=== PATIENT | female | born 1935 | race Caucasian/White ===

== ENCOUNTER 2016-07-31 10:14 | Inpatient (IN) ==
[2016-07-31] MEDS ORDERED: SODIUM CHLORIDE 0.9% 500 ML IV STA (10:54)
[2016-07-31] MEDS ORDERED: methylPREDNISolone SOD SUC 125 MG/2 ML VIAL IV STA (10:54)
[2016-07-31] MEDS ORDERED: ALBUTEROL 2.5 MG/3 ML NEB RESP TX SCH (11:00)
[2016-07-31] MEDS ORDERED: LEVOFLOXACIN INJ 500 MG in PREMIX 1 EACH IV STA (11:12)
--- NOTE | 2016-07-31 11:21 | Emergency Department Note ---
Earnestine Mccoy Hilary, am scribing for, and in the presence of, Yannick Quintana MD 10:58. Mariano Mccoy Charles R, MD, personally performed the services described in this documentation, ascribed by Annika Colby in my presence, and it is both accurate and complete . Arrival - Arrival Chief Complaint: Upper Respiratory Stated Complaint: "SICK" ED Nursing Triage Note: PT BROUGHT BY EMS FOR FEVER, PRODUCTIVE COUGH, AND RECENT DIAGNOSIS OF PNEUMONIA. PT WAS SEEN HERE ON SATURDAY FOR SAME C/O. Mode of Arrival: Stretcher Limitations: No Limitations Source: Patient, RN Notes Reviewed Time Seen by Provider: 07/31/16 10:45 - History of Present Illness HPI Narrative: Pt is a 80 y/o female brought into the ED via EMS with c/o of not feeling well and feeling nervous. Pt was recently diagnosed with pneumonia per records. She states that she has been getting pain injections in her back and she is feeling confused. She isn't complaining of any injuries or problems just that she isn't feeling good. No other complaints or problems stated in the ED. Onset (ago): unknown Severity: mild Severity scale (1-10): 1 Allergies/Adverse Reactions: Allergies Allergy/AdvReac Type Severity Reaction Status Date / Time azithromycin [From Zithromax] Allergy Mild Unknown/Unable Verified 07/31/16 10: 22 to obtain acetaminophen [From Lortab] Allergy Unknown/Unable Verified 07/31/16 10:22 to obtain cefdinir [From Omnicef] Allergy Unknown/Unable Verified 07/31/16 10:22 to obtain cephalexin Allergy Unknown/Unable Verified 07/31/16 10:22 to obtain Cephalosporins Allergy Unknown/Unable Verified 07/31/16 10:22 to obtain clarithromycin [From Biaxin] Allergy Unknown/Unable Verified 07/31/16 10:22 to obtain Erythromycin Base Allergy Unknown/Unable Verified 07/31/16 10:22 to obtain hydrocodone [From Lortab] Allergy Unknown/Unable Verified 07/31/16 10:22 to obtain nitrofurantoin Allergy Unknown/Unable Verified 07/31/16 10:22 [From Macrobid] to obtain ofloxacin [From Floxin] Allergy Unknown/Unable Verified 07/31/16 10:22 to obtain Penicillins Allergy Unknown/Unable Verified 07/31/16 10:22 to obtain Sulfa (Sulfonamide Allergy Unknown/Unable Verified 07/31/16 10:22 Antibiotics) to obtain Home Medications: Home Medications Medication Instructions Recorded Confirmed Type Atorvastatin Calcium 20 mg PO DAILY 07/27/16 07/31/16 History Celecoxib [Celebrex] 200 mg PO DAILY 07/27/16 07/31/16 History Enalapril Maleate 20 mg PO BID 07/27/16 07/31/16 History Esomeprazole Magnesium [Nexium] 20 mg PO DAILY 07/27/16 07/31/16 History Gabapentin 300 mg PO TID 07/27/16 07/31/16 History Levofloxacin Tab [Levaquin Tab] 750 mg PO DAILY #7 tablet 07/27/16 07/31/16 Rx Levothyroxine Tab [Synthroid Tab] 50 mcg PO DAILY 07/27/16 07/31/16 History Oxybutynin Chloride [Oxybutynin 10 mg PO DAILY 07/27/16 07/31/16 History Chloride ER] Oxycodone HCl/Acetaminophen 1 each PO Q6H PRN 07/27/16 07/31/16 History [Oxycodone-Acetaminophen 10-325] amLODIPine [Norvasc] 5 mg PO DAILY 07/27/16 07/31/16 History sitaGLIPtin [Januvia] 100 mg PO DAILY 07/27/16 07/31/16 History methylPREDNISolone DOSEPAK [Medrol 4 mg PO DAILY 07/31/16 07/31/16 History Dosepak] Review of System - Review of System 12 point system: reviewed and no additional remarkable complaints except as stated - Review of System Constitutional: Absent: fever Respiratory: Present: cough (slight cough) Neurological: Present: confusion Psychiatric: Present: other (Nervousness) Medical,Surgical,& Family Hx - Social History Smoking Status: Smoker, status unknown Frequency of Alcohol Use: None Type of Drug Use: None Exam Vital Signs: Vital Signs Temperature 97.9 F 07/31/16 10:53 Pulse Rate 91 H 07/31/16 10:53 Respiratory Rate 07/31/16 10:53 Blood Pressure 98/59 07/31/16 10:53 O2 Sat by Pulse Oximetry 98 07/31/16 10:53 - General General appearance: alert, in no apparent distress, other (weak and sick appearing) - Head Head exam: Present: atraumatic, normocephalic - Eye Eye exam: Present: normal appearance, PERRL, EOMI - ENT ENT exam: Present: mucous membranes moist, TM's normal bilaterally. Absent: mucous membranes dry - Neck Neck exam: Present: full ROM, trachea midline. Absent: tenderness - Chest Chest inspection: Present: symmetric chest wall rise. Absent: tenderness - Respiratory Respiratory exam: Present: prolonged expiratory phase, wheezes, other (right lung is positive for egophoney). Absent: normal lung sounds bilaterally ( decreased breath sounds) - Cardiovascular Cardiovascular exam: Present: regular rate, normal rhythm, normal heart sounds. Absent: murmur, rubs, gallop - Abdominal Exam Abdominal exam: Present: soft, normal bowel sounds. Absent: distention, tenderness - Extremities Exam Extremities exam: Present: full ROM, other (swan neck of the fingers, arthritic changes in all extremeties). Absent: tenderness - Back Exam Back exam: Present: full ROM. Absent: tenderness - Neurological Exam Neurological exam: Present: alert, oriented X3, CN II-XII intact. Absent: motor sensory deficit - Psychiatric Psychiatric exam: Present: normal affect, normal mood, other (Pleasantly confused) - Skin Skin exam: Present: warm, dry, intact, normal color. Absent: rash Course - Consultations Consultation #1: Hospitalist will admit patient Time: 12:25 Results - Labs CBC & BMP: 07/31/16 10:27 07/31/16 10:27 Lab Results: I have reviewed the patients labs Labs: Laboratory Tests 07/31/16 10:27 WBC 19.1 H RBC 4.25 Hgb 13.5 Hct 39.3 MPV 9.1 L Neut % (Auto) 75.3 H Lymph % (Auto) 13.1 L Neut # (Auto) 14.4 H Stark # (Auto) 1.1 H Laboratory Tests 07/31/16 07/31/16 10:27 10:27 INR 1.0 PT Patient/Control Mix 10.1 Sodium 132 L Potassium 4.5 Chloride 100 Carbon Dioxide 24 BUN 18 Creatinine 0.90 BUN/Creatinine Ratio 20.00 Glucose 119 H Calculated Osmolality 266.5 L Troponin I 0.029 Total Protein 5.5 L Albumin 2.8 L Albumin/Globulin Ratio 1.0 L Laboratory Tests 07/31/16 07/31/16 10:27 10:27 Total Counted 100 Segmented Neutrophils 81 Band Neutrophils 2 Lymphocytes 14 L Monocytes 3 B-Natriuretic Peptide 75 - Diagnostic Findings Procedure: Chest x-ray: report reviewed by me (Chronic interstitial scarring changes with superimposed nonspecific patchy opacities appear similar to slightly improved from prior. No definite new focal consolidation or other active process) Critical Care Time Critical Care Time: Yes Total Critical Care Time: 60 Disposition Clinical Impression: Pneumonia, Sepsis, Generalized weakness, Hypotension, Bronchitis, COPD exacerbation Case discussed with: patient Disposition: Still a Patient Condition: Guarded Time of Disposition: 12:25 Sepsis - Sepsis Classification of Sepsis: Sepsis - Physical Exam Respiratory exam: rhonchi, wheezes Cardiovascular exam: tachycardia Skin exam: normal color
[2016-07-31 11:27] LABS: Basophils # 0.1 10*3/uL (0.0-0.2); Basophils % 0.3 % (0.0-0.8); Eosinophils # 0.2 10*3/uL (0.0-0.87); Eosinophils % 0.8 % (0.00-10.9); Hematocrit 39.3 VOL% (35.7-47.0); Hemoglobin 13.5 GM/DL (12.0-16.0); Immature Granulocytes % 4.7 %; Lymphocytes # 2.5 10*3/uL (1.4-4.0); Lymphocytes % 13.1 % (21.3-54.2); Mean Corpuscular HGB Conc 34.4 GM/DL (32-36); Mean Corpuscular Hemoglobin 32 PG (27-34); Mean Corpuscular Volume 92.5 FL (87-102); Mean Platelet Volume 9.1 FL (9.6-12.0); Monocytes # 1.1 10*3/uL (0.11-0.8); Monocytes % 5.8 % (1.7-12.7); Neutrophils # 14.4 10*3/uL (1.4-7.4); Neutrophils % 75.3 % (38.7-73.9); Platelet Count 287 T/CUMM (130-400); Red Blood Count 4.25 MC/CUMM (3.8-5.5); Red Cell Distribution Width 14.7 % (9.3-17.3); White Blood Count 19.1 T/CUMM (4-12)
[2016-07-31 11:32] LABS: PT Patient Result 10.1 SECS
[2016-07-31 11:41] LABS: Albumin 2.8 G/DL (3.4-5.0); Bilirubin,Total 0.7 MG/DL (0.2-1.0); Calcium 8.6 MG/DL (8.5-10.1); Magnesium 1.9 MG/DL (1.8-2.4); Osmolality,Calculated 266.5 MOS/KG (273-304); Potassium 4.5 MMOL/L (3.5-5.1); Total Protein 5.5 G/DL (6.4-8.3); Troponin I Only 0.029 NG/ML (0.00-0.045)
--- NOTE | 2016-07-31 12:01 | XRay Report ---
Exam: XR chest 1V portable Indication: Shortness of breath Comparison study: Prior chest radiograph 07/27/2016 Findings: The heart, mediastinum and bony structures are stable from prior. Diffuse chronic appearing interstitial scarring changes appear essentially unchanged from prior. There are a few scattered superimposed areas of interstitial/focal airspace opacity which appear similar to slightly decreased from prior may represent underlying atelectasis or focal scarring or resolving infiltrates. No definite new focal consolidation is visualized. There is no pneumothorax or pleural effusion identified. Impression: Chronic interstitial scarring changes with superimposed nonspecific patchy opacities appear similar to slightly improved from prior. No definite new focal consolidation or other active process. PROCEDURE INTERPRETED AT [facility] DEPARTMENT OF RADIOLOGY Final Report Signed by: Neil Thomas
[2016-07-31] MEDS ORDERED: LEVOFLOXACIN INJ 100 ML IV ONE (12:04)
[2016-07-31 12:17] LABS: Band Neutrophils 2 % (0-10); Lymphocytes 14 % (20-55); Platelet Estimate Normal; Segmented Neutrophils 81 % (50-85); Total Cells Counted 100
[2016-07-31] MEDS ORDERED: methylPREDNISolone SOD SUC 125 MG/2 ML VIAL ONE (12:28)
[2016-07-31] MEDS ORDERED: SODIUM CHLORIDE 0.9% 1,000 ML IV STA (14:30)
[2016-07-31] MEDS ORDERED: ONDANSETRON 4 MG/2 ML VIAL IV PRN (14:32)
[2016-07-31] MEDS ORDERED: LACTULOSE 20 GM/30 ML UDCUP PO PRN (14:32)
[2016-07-31] MEDS ORDERED: DOCUSATE SODIUM 100 MG CAPSULE PO PRN (14:32)
[2016-07-31] MEDS ORDERED: ZALEPLON 5 MG CAPSULE PO PRN (14:32)
[2016-07-31] MEDS ORDERED: ACETAMINOPHEN 325 MG TABLET PO PRN (14:47)
--- NOTE | 2016-07-31 14:51 | Hospitalist History & Physical ---
Assessment and Plan (1) Pneumonia Status: Acute Assessment and plan: Chest x-ray shows no definite new focal consolidation or other active process, however there is chronic interstitial scarring changes with superimposed nonspecific patchy opacities. Patient will be continued on Levaquin IV. IV fluid hydration. Blood cultures and urine cultures pending. Current Visit: Yes (2) Hypotension Status: Acute Assessment and plan: BP was 89/52 on admission, it improved to 98/59 with a bolus of fluid. Patient remains hypotensive. We will hold all antihypertensives at this time. Will support with IV fluid resuscitation. Patient will be admitted to ICU for further care. Current Visit: Yes (3) Leukocytosis Status: Acute Assessment and plan: WBC 19.1. This is likely secondary to steroid use. However we will obtain blood cultures and urine cultures to rule out any source of infection. Current Visit: Yes (4) Generalized weakness Status: Acute Current Visit: Yes History of Present Illness Chief complaint: feeling nervous History of present illness: Ms. Bhagat is a 80 year old white female with a past medical history significant for hypertension, hypothyroidism, hyperlipidemia, arthritis who presents to the ED with complaints of not feeling well and feeling nervous. Patient was recently seen in the ER on Saturday and diagnosed with pneumonia per hospital records. She reports to me that she has a history of back pain and recently saw Dr. Gutiérrez and had a steroid injection on . She was then treated with Medrol Dosepak on Saturday in the ER. Patient states that she has been extremely nervous and jittery all weekend and presents back to the ED today with pneumonia, tachycardia, chills, leukocytosis. Patient was a poor historian and complained mostly about being cold and "ready to get a room". She denies headache, blurry vision, chest pain, changes in appetite or bowel habits, edema. Labs on admission reveal WBC 19.1, hemoglobin 13.5, hematocrit 39.3, sodium 132, potassium 4.5, BUN 18, creatinine 0.90, glucose 119. Patient is hypotensive with a blood pressure on admission of 89/52. Case has been discussed with Dr. Quintana, ER physician, and Dr. Bahena, admitting physician, and patient will be admitted to the hospital medicine service for further treatment and evaluation. Patient this is a full code. Home meds have been reviewed and reconciled. We will hold all blood pressure medications at this time. Home Medications Medication Instructions Recorded Confirmed Type Atorvastatin Calcium 20 mg PO DAILY 07/27/16 07/31/16 History Celecoxib [Celebrex] 200 mg PO DAILY 07/27/16 07/31/16 History Enalapril Maleate 20 mg PO BID 07/27/16 07/31/16 History Esomeprazole Magnesium [Nexium] 20 mg PO DAILY 07/27/16 07/31/16 History Gabapentin 300 mg PO TID 07/27/16 07/31/16 History Levofloxacin Tab [Levaquin Tab] 750 mg PO DAILY #7 tablet 07/27/16 07/31/16 Rx Levothyroxine Tab [Synthroid Tab] 50 mcg PO DAILY 07/27/16 07/31/16 History Oxybutynin Chloride [Oxybutynin 10 mg PO DAILY 07/27/16 07/31/16 History Chloride ER] Oxycodone HCl/Acetaminophen 1 each PO Q6H PRN 07/27/16 07/31/16 History [Oxycodone-Acetaminophen 10-325] amLODIPine [Norvasc] 5 mg PO DAILY 07/27/16 07/31/16 History sitaGLIPtin [Januvia] 100 mg PO DAILY 07/27/16 07/31/16 History methylPREDNISolone DOSEPAK [Medrol 4 mg PO DAILY 07/31/16 07/31/16 History Dosepak] Allergies Allergy/AdvReac Type Severity Reaction Status Date / Time azithromycin [From Zithromax] Allergy Mild Unknown/Unable Verified 07/31/16 10: 22 to obtain acetaminophen [From Lortab] Allergy Unknown/Unable Verified 07/31/16 10:22 to obtain cefdinir [From Omnicef] Allergy Unknown/Unable Verified 07/31/16 10:22 to obtain cephalexin Allergy Unknown/Unable Verified 07/31/16 10:22 to obtain Cephalosporins Allergy Unknown/Unable Verified 07/31/16 10:22 to obtain clarithromycin [From Biaxin] Allergy Unknown/Unable Verified 07/31/16 10:22 to obtain Erythromycin Base Allergy Unknown/Unable Verified 07/31/16 10:22 to obtain hydrocodone [From Lortab] Allergy Unknown/Unable Verified 07/31/16 10:22 to obtain nitrofurantoin Allergy Unknown/Unable Verified 07/31/16 10:22 [From Macrobid] to obtain ofloxacin [From Floxin] Allergy Unknown/Unable Verified 07/31/16 10:22 to obtain Penicillins Allergy Unknown/Unable Verified 07/31/16 10:22 to obtain Sulfa (Sulfonamide Allergy Unknown/Unable Verified 07/31/16 10:22 Antibiotics) to obtain Medical,Surgical,& Family Hx - Social History Smoking Status: Smoker, status unknown Frequency of Alcohol Use: None Type of Drug Use: None - Constitutional Constitutional: Present: chills, weakness. Absent: fever(s), headache(s) - EENT Eyes: Absent: blurry vision Ears: Present: decreased hearing Nose, mouth and throat: Absent: dysphagia, hoarseness, vertigo - Cardiovascular Cardiovascular: Present: dyspnea, dyspnea on exertion. Absent: chest pain at rest, chest pain with activity, diaphoresis, edema, radiating jaw, neck or arm pain, palpitations - Respiratory Respiratory: Present: cough, pain on inspiration, change in phlegm color - Gastrointestinal Gastrointestinal: Absent: abdominal pain, constipation, nausea, vomiting - Genitourinary Genitourinary: Absent: dysuria, hematuria - Musculoskeletal Musculoskeletal: Present: arthralgias, back pain - Neurological Neurological: Absent: abnormal gait, abnormal speech, dizziness - Psychiatric Psychiatric: Absent: anxiety, depression - Endocrine Endocrine: Present: cold intolerance, fatigue, heat intolerance - Hematologic/Lymphatic Hematologic/Lymphatic: Present: easy bleeding, easy bruising Exam - Constitutional Vitals: Period Temp Pulse Resp BP Sys/Staley Pulse Ox Last 24 Hr 97.9 F-97.9 F 88-143 18-24 81-109/42-65 87-98 Exam: General appearance: normal weight, no acute distress - Head Head exam: Present: normocephalic, atraumatic - Eye Eye exam: Present: EOMI. Absent: conjunctival injection, nystagmus Pupils: Present: JULIANNA, normal accommodation - ENT ENT exam: Present: normal exam, normal external ear exam - Neck Neck exam: Present: normal inspection. Absent: lymphadenopathy, tenderness, thyromegaly - Respiratory Respiratory exam: Present: rhonchi present in R lung Absent: rales, wheezes - Cardiovascular Cardiovascular exam: Present: regular rate and rhythm. Absent: carotid bruit, gallop, rubs - GI/Abdominal GI/Abdominal exam: Present: normal bowel sounds. Absent: ascites, distended, mass - Extremities Exam Extremities exam: Present: normal inspection, normal capillary refill. Absent: edema - Back Exam Back exam: Absent: CVA tenderness (L), CVA tenderness (R) - Neurological Exam Neurological exam: Present: alert, oriented X3 - Psychiatric Psychiatric exam: Present: normal affect, normal mood - Skin Skin exam: Present: normal color, warm, dry Results - Labs CBC & BMP: 07/31/16 10:27 07/31/16 10:27 Lab Results: I have reviewed the past 24 hour labs - EKG EKG results: interpreted by ERMD - Diagnostic Findings Procedure: Chest x-ray: image reviewed by me, report reviewed by me
[2016-07-31] MEDS ORDERED: oxyCODONE/ACETAMINOPHEN 5-325 MG TABLET PO PRN (17:12)
[2016-07-31] MEDS ORDERED: DEXTROSE 50% 25 GM/50 ML VIAL IV PRN (17:13)
[2016-07-31] MEDS ORDERED: GLUCAGON 1 MG VIAL IM PRN (17:13)
[2016-07-31] MEDS ORDERED: HYDROCORTISONE 100 MG VIAL IV ONE (17:14)
[2016-07-31] MEDS ORDERED: ENOXAPARIN 40 MG/0.4 ML SYRINGE SUBCUT SCH (17:30)
[2016-07-31] MEDS ORDERED: SODIUM CHLORIDE 0.9% 1,650 ML IV ONE (17:34)
--- NOTE | 2016-07-31 17:41 | Event Note ---
Patient is admitted with severe sepsis with leukocytosis, hypotension, tachycardia and shortness of breath. A lactic acid was ordered but not drawn in the emergency department. Sepsis - Sepsis Classification of Sepsis: Severe Sepsis Possible / Suspected infection from: Pneumonia - Physical Exam Physical Exam: Constitutional System: Severe distress. Mild tremulousness. Head: Normocephalic, atraumatic. Ears, Nose and Throat System: No pain or tenderness. No epistaxis or discharge Eyes System: Pupils equal, round, and reactive. Extraocular muscles intact. Neck: Supple, without adenopathy, No jugular venous distention. Respiratory System: Chest rhonchi and wheezing bilaterally to auscultation. Cardiovascular System: Heart with tachycardic rate and rhythm. No murmur. GI System: Abdomen soft, nontender. Normo active bowel sounds present. Musculoskeletal System: limbs with no pedal edema. Full distal pulses. Neurological System: No discernable sensory deficit. No aphasia Psychiatric System: Conversation is rational - Physical Exam Respiratory exam: rhonchi, wheezes Capillary Refill: Less Than 3 Seconds Peripheral pulses: Radial (L): 3+/4+, Radial (R): 3+/4+, Dorsalis Pedis (L) PM: 3+/4+, Dorsalis Pedis (R) PM: 3+/4+, Posterior Tibialis (L): 3+/4+, Posterior Tibialis (R): 3+/4+ Cardiovascular exam: tachycardia Skin exam: normal color
[2016-07-31] MEDS ORDERED: ALPRAZolam 0.5 MG TABLET PO PRN (17:43)
[2016-07-31 18:53] LABS: Apearance,Urine CLEAR (Clear); Bacteria,Urine Occasional /HPF (Few); Bilirubin,Urine Negative (Negative); Blood, Urine Negative (Negative); Glucose,Urine (UA) Negative (Negative); Ketones,Urine 5 mg/dL (Negative); Mucus,Urine Occasional /LPF (Occasional); Nitrite,Urine Negative (Negative); Protein,Urine Negative; RBC,Urine 1 /HPF (0-4); Squamous Epithelial Cell,Urine Occasional /HPF (0-10); Urine Color Yellow (Yellow); Urine Specific Gravity 1.012 (1.001-1.035); Urine Urobilinogen < 2.0 EU/DL (0.2-1.0); WBC,Urine 3 /HPF (0-6)
[2016-07-31] MEDS: SODIUM CHLORIDE 0.9% 1,000 ML IV SCH (18:55)
[2016-07-31] MEDS: INSULIN LISPRO 100 UNIT/ML SUBCUT SCH (20:40)
[2016-08-01] MEDS: SODIUM CHLORIDE 0.9% 1,000 ML IV SCH ×2 (02:31→12:01)
[2016-08-01 02:40] LABS: ABG HCO3 15.5 MMOL/L (20-26); ABG Oxygen Saturation 95.5 % (95-100); ABG PCO2 26.5 MM HG (35-48); ABG PH 7.386 (7.35-7.45); ABG PO2 76.9 MM HG (80-95); ABG TCO2 16.4 MMOL/L (23-27); Allen Test Positive
[2016-08-01 04:19] LABS: Basophils % 0.2 % (0.0-0.8); Hematocrit 33.1 VOL% (35.7-47.0); Hemoglobin 11.3 GM/DL (12.0-16.0); Immature Granulocytes % 4.4 %; Immature Granulocytes Absolute 0.75 #; Lymphocytes % 5.7 % (21.3-54.2); Mean Corpuscular HGB Conc 34.1 GM/DL (32-36); Mean Corpuscular Hemoglobin 32 PG (27-34); Mean Corpuscular Volume 92.2 FL (87-102); Mean Platelet Volume 8.9 FL (9.6-12.0); Monocytes # 0.3 10*3/uL (0.11-0.8); Monocytes % 1.5 % (1.7-12.7); Neutrophils # 14.9 10*3/uL (1.4-7.4); Neutrophils % 88.2 % (38.7-73.9); Platelet Count 227 T/CUMM (130-400); Red Blood Count 3.59 MC/CUMM (3.8-5.5); Red Cell Distribution Width 14.6 % (9.3-17.3); White Blood Count 16.9 T/CUMM (4-12)
[2016-08-01 04:49] LABS: Band Neutrophils 2 % (0-10); Burr Cells 2+; Lymphocytes 7 % (20-55); Platelet Estimate Normal; Segmented Neutrophils 89 % (50-85); Total Cells Counted 100
[2016-08-01 04:57] LABS: Potassium 3.9 MMOL/L (3.5-5.1)
--- NOTE | 2016-08-01 07:13 | Pulmonology Consult Note ---
Assessment and Plan (1) Tobacco abuse Status: Acute Assessment and plan: We will need long discussion is following stopping smoking. She is on home oxygen with COPD already but continues to smoke. Current Visit: Yes (2) Multifocal atrial tachycardia Status: Acute Assessment and plan: Tracings on the monitor indicate multifocal atrial tachycardia. This is often seen with COPD exacerbation. Treat by treating the underlying lung problems. Diltiazem is helpful at times. Current Visit: Yes (3) COPD exacerbation Status: Acute Assessment and plan: Intravenous corticosteroids, nebulized bronchodilators, and antibiotics are ordered. She has multiple antibiotic allergies. I think Levaquin and doxycycline or a reasonable combination. Current Visit: Yes (4) Pneumonia Status: Acute Assessment and plan: Acute bronchopneumonia. Should be covered with current meds. Current Visit: Yes (5) Sepsis Status: Acute Assessment and plan: Blood pressure control with present. Lactic acid was not elevated. Current Visit: Yes History of Present Illness Chief complaint: Cough shortness of breath History of present illness: Ms. Bhagat is a 80 year old female who was admitted yesterday afternoon through the emergency room. She had acute onset of pneumonia type symptoms about 5 days ago and was treated at home. She got worse yesterday and came in was admitted. She was hypotensive and felt to be septic. She is presently on Levaquin and doxycycline. She has multiple antibiotic allergies. She is a smoker up until current time. She was followed in the past by Dr. Yannick Melendez in [place]. She says she moved to [place] 7 years ago but has not established care here. She has hypertension hyperlipidemia and peripheral neuropathy. She has chronic back pain radiating to her leg. She had an injection in her back Saturday by Dr. Gutiérrez. Home Medications Medication Instructions Recorded Confirmed Type Atorvastatin Calcium 20 mg PO DAILY 07/27/16 07/31/16 History Celecoxib [Celebrex] 200 mg PO DAILY 07/27/16 07/31/16 History Enalapril Maleate 20 mg PO BID 07/27/16 07/31/16 History Esomeprazole Magnesium [Nexium] 20 mg PO DAILY 07/27/16 07/31/16 History Gabapentin 300 mg PO TID 07/27/16 07/31/16 History Levofloxacin Tab [Levaquin Tab] 750 mg PO DAILY #7 tablet 07/27/16 07/31/16 Rx Levothyroxine Tab [Synthroid Tab] 50 mcg PO DAILY 07/27/16 07/31/16 History Oxybutynin Chloride [Oxybutynin 10 mg PO DAILY 07/27/16 07/31/16 History Chloride ER] Oxycodone HCl/Acetaminophen 1 each PO Q6H PRN 07/27/16 07/31/16 History [Oxycodone-Acetaminophen 10-325] amLODIPine [Norvasc] 5 mg PO DAILY 07/27/16 07/31/16 History sitaGLIPtin [Januvia] 100 mg PO DAILY 07/27/16 07/31/16 History methylPREDNISolone DOSEPAK [Medrol 4 mg PO DAILY 07/31/16 07/31/16 History Dosepak] Allergies Allergy/AdvReac Type Severity Reaction Status Date / Time azithromycin [From Zithromax] Allergy Mild Unknown/Unable Verified 07/31/16 10: 22 to obtain acetaminophen [From Lortab] Allergy Unknown/Unable Verified 07/31/16 10:22 to obtain cefdinir [From Omnicef] Allergy Unknown/Unable Verified 07/31/16 10:22 to obtain cephalexin Allergy Unknown/Unable Verified 07/31/16 10:22 to obtain Cephalosporins Allergy Unknown/Unable Verified 07/31/16 10:22 to obtain clarithromycin [From Biaxin] Allergy Unknown/Unable Verified 07/31/16 10:22 to obtain Erythromycin Base Allergy Unknown/Unable Verified 07/31/16 10:22 to obtain hydrocodone [From Lortab] Allergy Unknown/Unable Verified 07/31/16 10:22 to obtain nitrofurantoin Allergy Unknown/Unable Verified 07/31/16 10:22 [From Macrobid] to obtain ofloxacin [From Floxin] Allergy Unknown/Unable Verified 07/31/16 10:22 to obtain Penicillins Allergy Unknown/Unable Verified 07/31/16 10:22 to obtain Sulfa (Sulfonamide Allergy Unknown/Unable Verified 07/31/16 10:22 Antibiotics) to obtain 12 point system: reviewed and no additional remarkable complaints except as stated - Constitutional Constitutional: Present: chills, weakness - EENT Ears: Present: decreased hearing - Cardiovascular Cardiovascular: Present: dyspnea, dyspnea on exertion - Respiratory Respiratory: Present: cough, dyspnea, dyspnea on exertion, wheezing, pain on inspiration, change in phlegm color - Musculoskeletal Musculoskeletal: Present: arthralgias, back pain - Endocrine Endocrine: Present: cold intolerance, fatigue, heat intolerance - Hematologic/Lymphatic Hematologic/Lymphatic: Present: easy bleeding, easy bruising Exam (Pulmonay) H&P - Constitutional Vitals: Period Temp Pulse Resp BP Sys/Staley Pulse Ox Last 24 Hr 97.9 F-99.2 F 84-143 16-28 75-124/42-98 87-99 Exam: Patient is alert and responsive. Vital signs normal at present. Pupils react to light. Throat is clear. Neck is supple no bruits. Chest shows some expiratory rhonchi bilaterally. Heart is irregular without murmur. She has multifocal atrial tachycardia on her tracings. Abdomen soft nontender no masses. Bowel sounds present. Extremities no clubbing cyanosis or edema. Calves nontender. Medical,Surgical,& Family Hx - Medical History Cardio: History of: Cardiac Dysrhythmia, Hypertension Endocrine: History of: Diabetes Mellitus (IDDM), Dyslipidemia, Thyroid Disorder Rheumatology: History of;: Rheumatoid Arthritis Respiratory: History of: Pneumonia - Surgical History Reproductive Surgeries: Surgical HX of;: Hysterectomy - Social History Smoking Status: Smoker, status unknown Frequency of Alcohol Use: None Type of Drug Use: None Results - Labs CBC & BMP: 08/01/16 04:00 08/01/16 04:00 Lab Results: I have reviewed the past 24 hour labs - Diagnostic Findings Procedure: Chest x-ray: image reviewed by me (Patchy interstitial infiltrates unchanged from previous x-rays available here.)
--- NOTE | 2016-08-01 07:54 | XRay Report ---
History: Shortness of breath Date: 08/01/2016 Study: Chest x-ray AP portable Comparison exam: 07/31/2016 The cardiac silhouette is upper normal in size. The mediastinal contour is unchanged. There is moderate aortic arch calcification. The pulmonary vasculature is slightly more prominent than on the previous study. There is no gross pleural effusion. There are some scattered emphysematous changes. There is some minimally increased perihilar haziness bilaterally, right greater than left, compared to the previous study. There is osteopenia and mild thoracic spondylosis. Impression: Suspect mild CHF/volume overload with some developing minimal pulmonary edema PROCEDURE INTERPRETED AT [facility] DEPARTMENT OF RADIOLOGY Final Report Signed by: Dr. Virginia Esquivel
--- NOTE | 2016-08-01 08:46 | EKG Report ---
Stationary ECG Study [facility] ER Test Date: 07/31/2016 12:08:55 PM Pat Name: CECY CAPUTO Department: Room: 123 Gender: F Coroner Technician: : [id number] Requested by: Yannick Jacobs Order Number: [id number] Reading MD: ANDREINA SOUZA Intervals [place] Rate: 118 P: 999 TX: 0 QRS: 35 QRSD: 77 T: 80 QT: 287 QTc: 357 Interpretive Statements SINUS TACHYCARDIA WITH PAC'S POOR QUALITY BASELINE Electronically Signed On 08-01-16 16:47:04 CDT by ANDREINA SOUZA [email or web address]
[2016-08-01] MEDS ORDERED: LEVOTHYROXINE 50 MCG TABLET PO SCH (09:00)
[2016-08-01] MEDS ORDERED: PANTOPRAZOLE 40 MG TABLET PO SCH (09:00)
[2016-08-01] MEDS ORDERED: ATORVASTATIN 20 MG TABLET PO SCH (09:00)
[2016-08-01] MEDS ORDERED: predniSONE 20 MG TABLET PO SCH (09:00)
[2016-08-01] MEDS ORDERED: NON-FORMULARY MEDICATION (Esomeprazole Magnesium [Nexium] 20 MG) PO SCH (09:00)
[2016-08-01] MEDS ORDERED: OXYBUTYNIN XL 10 MG TABLET PO SCH (09:00)
[2016-08-01] MEDS: INSULIN LISPRO 100 UNIT/ML SUBCUT SCH ×2 (09:09→11:41)
[2016-08-01] MEDS ORDERED: LEVOFLOXACIN INJ 750 MG in PREMIX 1 EACH IV SCH (12:00)
[2016-08-01] MEDS ORDERED: ALBUTEROL/IPRATROPIUM 3 ML NEB RESP TX PRN (14:10)
--- NOTE | 2016-08-01 14:16 | Hospitalist Progress Note ---
Assessment and Plan (1) COPD exacerbation Status: Acute Assessment and plan: Continue antibiotics with Levaquin and doxycycline. Mucinex, breathing treatments, prednisone. Pulmonary following. Add Combivent and Singulair. Current Visit: Yes (2) Pneumonia Status: Acute Current Visit: Yes (3) Sepsis Status: Acute Assessment and plan: Pneumonia is the presumable source. Lactic acid was less than 2. Blood pressure has improved without pressors. Current Visit: Yes (4) Tobacco abuse Status: Acute Current Visit: Yes (5) Multifocal atrial tachycardia Status: Acute Assessment and plan: Add Cardizem for rate control Current Visit: Yes Hospitalist: Subjective Interval history: Patient seen and examined. She appears much more comfortable today. Pulmonary consult reviewed and appreciated. She continues to have periods of tachycardia and Cardizem has been added for rate control. Exam - Constitutional Vitals: Period Temp Pulse Resp BP Sys/Staley Pulse Ox Last 24 Hr 98.0 F-99.2 F 84-127 16-28 75-140/43-98 92-99 Exam: Constitutional System: Mild distress. No tremulousness. Head: Normocephalic, atraumatic. Ears, Nose and Throat System: No pain or tenderness. No epistaxis or discharge Eyes System: Pupils equal, round, and reactive. Extraocular muscles intact. Neck: Supple, without adenopathy, No jugular venous distention. No thyromegaly, neck mass, or prior surgery apparent. Respiratory System: Chest rhonchi and wheezes to auscultation. Improved from admission Cardiovascular System: Heart with irregular rate, and rhythm with tachycardia . No murmur. GI System: Abdomen soft, nontender. Normo active bowel sounds present. Musculoskeletal System: limbs with no pedal edema. Full distal pulses. Neurological System: No discernable sensory deficit. No aphasia Psychiatric System: Conversation is rational Results - Labs CBC & BMP: 08/01/16 04:00 08/01/16 04:00 Lab Results: I have reviewed the past 24 hour labs
[2016-08-01] MEDS ORDERED: MONTELUKAST 10 MG TABLET PO SCH (14:30)
[2016-08-01] MEDS ORDERED: DOXYCYCLINE HYCLATE INJ 100 MG in SODIUM CHLORIDE 0.9% 100 ML IV SCH (15:00)
[2016-08-01] MEDS ORDERED: DILTIAZEM 30 MG TABLET PO SCH (15:00)
[2016-08-01] MEDS ORDERED: GABAPENTIN 300 MG CAPSULE PO SCH (15:00)
[2016-08-01] MEDS ORDERED: LORazepam 2 MG/1 ML VIAL IV ONE (15:45)
[2016-08-01] MEDS ORDERED: LORazepam 2 MG/1 ML VIAL IV PRN (15:45)
[2016-08-01 15:54] LABS: Troponin I Only 0.026 NG/ML (0.00-0.045)
[2016-08-01] MEDS ORDERED: NICOTINE 21 MG/24 HR PATCH TRANSDERM SCH (16:00)
[2016-08-01] MEDS ORDERED: IPRATROPIUM/ALBUTEROL INHALER INH SCH (17:00)
[2016-08-01 17:10] VITALS: BP 126/59
--- NOTE | 2016-08-01 17:28 | Discharge Summary ---
Hospital Course - Hospital Course Hospital Course: Ms. Santo was admitted to the CCU on July 31, 2016 with severe shortness of breath, tachycardia, hypotension and sepsis secondary to pneumonia. She has severe COPD with acute exacerbation. She improved over the next 24 hours but was increasingly restless. Ativan and Xanax were ordered for her comfort. She was seen in consultation by Dr. Gauthier. On hospital day #1 the patient became frustrated and wanted to be discharged. I explained to her that her COPD was not well-controlled and she needed further medications including antibiotics for treatment of her pneumonia. I explained to her that she was still very sick and needed to be in the intensive care unit. Her nurse, Morris Reyes, was present at the bedside for these conversations. We tried to convince the patient that it was not in her best interest to be discharged. She refused and took out her IVs and got dressed. She is leaving the hospital AGAINST MEDICAL ADVICE and is currently awaiting her to pick her up. She has completed the appropriate paperwork and recognizes the risks involved with her leaving the hospital. She plans to follow-up with her juke box mechanic tomorrow morning at 1030 at [place]. - Time spent with patient Time with patient DS: Greater than 30 minutes (Total discharge time for this patient, including [id number] time, clinical documentation, medication reconciliation, and discharge planning was 45 minutes.) Diagnosis - Discharge Diagnosis (1) COPD exacerbation Status: Acute (2) Pneumonia Status: Acute (3) Sepsis Status: Acute (4) Tobacco abuse Status: Acute (5) Multifocal atrial tachycardia Status: Acute Discharge Plan - Discharge Data Disposition: Left Against Medical Advice Condition at Discharge: Guarded - Discharge Medications No Action Levothyroxine Tab [Synthroid Tab] 50 mcg PO DAILY Gabapentin 300 mg PO TID amLODIPine [Norvasc] 5 mg PO DAILY Oxycodone HCl/Acetaminophen [Oxycodone-Acetaminophen 10-325] 1 each PO Q6H PRN PRN Reason: Pain Enalapril Maleate 20 mg PO BID Celecoxib [Celebrex] 200 mg PO DAILY Levofloxacin Tab [Levaquin Tab] 750 mg PO DAILY #7 tablet methylPREDNISolone DOSEPAK [Medrol Dosepak] 4 mg PO DAILY Esomeprazole Magnesium [Nexium] 20 mg PO DAILY sitaGLIPtin [Januvia] 100 mg PO DAILY Atorvastatin Calcium 20 mg PO DAILY Oxybutynin Chloride [Oxybutynin Chloride ER] 10 mg PO DAILY - Follow Up or Referral - Forms/Instructions Exam - Constitutional Vitals: Period Temp Pulse Resp BP Sys/Staley Pulse Ox Last 24 Hr 98.0 F-99.2 F 84-125 14-28 89-140/45-98 92-98 Discharge Results Procedures and tests throughout hospitalization: Pending Orders 07/31/16 10:42 Blood Culture Stat 07/31/16 18:23 Urine Culture Stat 08/01/16 12:40 Sputum Culture and Gram Stain Routine 08/02/16 04:00 Cortisol 8 AM IN AM Labs on day of discharge: Labs from last 24 hours 08/01/16 08/01/16 08/01/16 15:47 15:07 11:19 WBC RBC Hgb Hct MCV MCH MCHC RDW Plt Count MPV Neut % (Auto) Lymph % (Auto) Davis % (Auto) Eos % (Auto) Baso % (Auto) Neut # (Auto) Lymph # (Auto) Davis # (Auto) Eos # (Auto) Baso # (Auto) Total Counted Immature Gran % Nucleated RBC % Immature Gran # Segmented Neutrophils Band Neutrophils Lymphocytes Monocytes Nucleated RBCs # Platelet Estimate [place] Cells ABG pH ABG pCO2 ABG pO2 ABG HCO3 ABG Total CO2 ABG O2 Saturation ABG Base Excess FiO2 Sodium Potassium Chloride Carbon Dioxide Anion Gap BUN Creatinine GFR Calculation BUN/Creatinine Ratio Glucose POC Glucose 183 H 100 Calculated Osmolality Lactic Acid Calcium Total Creatine Kinase 27 CK-MB (CK-2) 1.6 Troponin I 0.026 Random Cortisol Urine Color Urine Appearance Urine pH Ur Specific [place] Urine Protein Urine Glucose (UA) Urine Ketones Urine Blood Urine Nitrate Urine Bilirubin Urine Urobilinogen Urine Leukocytes Urine RBC Urine WBC Ur Squamous Epith Cells Urine Bacteria Urine Mucus Ur Culture Indicated? 08/01/16 08/01/16 08/01/16 07:38 04:00 04:00 WBC 16.9 H RBC 3.59 L Hgb 11.3 L D Hct 33.1 L MCV 92.2 MCH 32 MCHC 34.1 RDW 14.6 Plt Count 227 D MPV 8.9 L Neut % (Auto) 88.2 H Lymph % (Auto) 5.7 L Davis % (Auto) 1.5 L Eos % (Auto) 0.0 Baso % (Auto) 0.2 Neut # (Auto) 14.9 H Lymph # (Auto) 1.0 L Davis # (Auto) 0.3 Eos # (Auto) 0.0 Baso # (Auto) 0.0 Total Counted 100 Immature Gran % 4.4 Nucleated RBC % 0.0 Immature Gran # 0.75 Segmented Neutrophils 89 H Band Neutrophils 2 Lymphocytes 7 L Monocytes 2 Nucleated RBCs # 0.00 Platelet Estimate Normal [place] Cells 2+ ABG pH ABG pCO2 ABG pO2 ABG HCO3 ABG Total CO2 ABG O2 Saturation ABG Base Excess FiO2 Sodium 136 Potassium 3.9 Chloride 108 H Carbon Dioxide 18 L Anion Gap 13.9 BUN 13 Creatinine 0.60 GFR Calculation 79 BUN/Creatinine Ratio 21.00 H Glucose 184 H POC Glucose 174 H Calculated Osmolality 276.0 Lactic Acid Calcium 8.0 L Total Creatine Kinase CK-MB (CK-2) Troponin I Random Cortisol Urine Color Urine Appearance Urine pH Ur Specific [place] Urine Protein Urine Glucose (UA) Urine Ketones Urine Blood Urine Nitrate Urine Bilirubin Urine Urobilinogen Urine Leukocytes Urine RBC Urine WBC Ur Squamous Epith Cells Urine Bacteria Urine Mucus Ur Culture Indicated? 08/01/16 07/31/16 07/31/16 02:20 20:36 18:23 WBC RBC Hgb Hct MCV MCH MCHC RDW Plt Count MPV Neut % (Auto) Lymph % (Auto) Davis % (Auto) Eos % (Auto) Baso % (Auto) Neut # (Auto) Lymph # (Auto) Davis # (Auto) Eos # (Auto) Baso # (Auto) Total Counted Immature Gran % Nucleated RBC % Immature Gran # Segmented Neutrophils Band Neutrophils Lymphocytes Monocytes Nucleated RBCs # Platelet Estimate [place] Cells ABG pH 7.386 ABG pCO2 26.5 L ABG pO2 76.9 L ABG HCO3 15.5 L ABG Total CO2 16.4 L ABG O2 Saturation 95.5 ABG Base Excess -8.0 L FiO2 28.00 Sodium Potassium Chloride Carbon Dioxide Anion Gap BUN Creatinine GFR Calculation BUN/Creatinine Ratio Glucose POC Glucose 256 H Calculated Osmolality Lactic Acid Calcium Total Creatine Kinase CK-MB (CK-2) Troponin I Random Cortisol Urine Color Yellow Urine Appearance Clear Urine pH 5.0 Ur Specific [place] 1.012 Urine Protein Negative Urine Glucose (UA) Negative Urine Ketones 5 Urine Blood Negative Urine Nitrate Negative Urine Bilirubin Negative Urine Urobilinogen < 2.0 H Urine Leukocytes Negative Urine RBC 1 Urine WBC 3 Ur Squamous Epith Cells Occasional Urine Bacteria Occasional Urine Mucus Occasional Ur Culture Indicated? Ordered separately 07/31/16 07/31/16 17:57 17:57 WBC RBC Hgb Hct MCV MCH MCHC RDW Plt Count MPV Neut % (Auto) Lymph % (Auto) Davis % (Auto) Eos % (Auto) Baso % (Auto) Neut # (Auto) Lymph # (Auto) Davis # (Auto) Eos # (Auto) Baso # (Auto) Total Counted Immature Gran % Nucleated RBC % Immature Gran # Segmented Neutrophils Band Neutrophils Lymphocytes Monocytes Nucleated RBCs # Platelet Estimate [place] Cells ABG pH ABG pCO2 ABG pO2 ABG HCO3 ABG Total CO2 ABG O2 Saturation ABG Base Excess FiO2 Sodium Potassium Chloride Carbon Dioxide Anion Gap BUN Creatinine GFR Calculation BUN/Creatinine Ratio Glucose POC Glucose Calculated Osmolality Lactic Acid 1.5 Calcium Total Creatine Kinase CK-MB (CK-2) Troponin I Random Cortisol 23.2 Urine Color Urine Appearance Urine pH Ur Specific [place] Urine Protein Urine Glucose (UA) Urine Ketones Urine Blood Urine Nitrate Urine Bilirubin Urine Urobilinogen Urine Leukocytes Urine RBC Urine WBC Ur Squamous Epith Cells Urine Bacteria Urine Mucus Ur Culture Indicated? Preliminary micro results at discharge 07/31/16 10:42 Blood Culture - Preliminary Blood No growth at 1 day 07/31/16 10:25 Blood Culture - Preliminary Blood No growth at 1 day 07/31/16 18:23 Urine Culture - Preliminary Urine,Catheterized No Growth at 12 hours. DS: Provider Date of admission: 07/31/16 13:56 Primary care physician: . No PCP Attending physician on admission: Shu Castaneda MD Consults: 07/31/16 17:35 Consult to Physician [CONS] Routine Comment: pneumonia, copd, sob Consulting Provider: Dillon Gauthier Person Notified: dr gauthier Date Notified: 08/01/16 Consult Notification Comment: saw pt on rounds 08/01 0730 then I notified office @ 0838 Discharging clinician: Ratna Bahena MD Expected date of discharge: 08/01/16
--- NOTE | 2016-08-01 18:55 | ECHO Report ---
Willow Bhagat Exam Date: 08/01/2016 07:55 Referring Physician: Technologist: praneeth Mtz ARDMS, RVT Age: 80 Ht (in): 65 Wt (lb): 123 Gender: F Exam [facility]: [facility] Echo Indications: Hypotension, Weakness, Pneumonia, Leukocytosis BP: 115 / 65 HR: 93 Rhythm: Atrial fibrillation Technical Quality: IMPRESSIONS The patient is in normal sinus rhythm Ejection fraction 55% with limited endocardial resolution to identify any potential regional wall motion abnormality however none is seenThere is moderate calcification of the posterior mitral annulus in the basal portion of the posterior valve leaflets with mild decreased excursion There is mild tricuspid regurgitation with a peak velocity of 2.88 m per sec which corresponds a right ventricular systolic pressure of 33 mmHg plus the right atrial pressure Grade 1 diastolic dysfunction. MEASUREMENTS (Male / Female) Normal Values 2D ECHO LV Diastolic Diameter PLAX 4.4 cm 4.2 - 5.9 / 3.9 - 5.3 cm LV Systolic Diameter PLAX 3.3 cm LV Fractional Shortening PLAX 25.8 % IVS Diastolic Thickness 1.0 cm 0.6 - 1.0 / 0.6 - 0.9 cm LVPW Diastolic Thickness 1.0 cm 0.6 - 1.0 / 0.6 - 0.9 cm RV Internal Dim ED PLAX 3.1 cm Aortic Root Diameter 2.9 cm LA Systolic Diameter LX 3.3 cm 3.0 - 4.0 / 2.7 - 3.8 cm DOPPLER TR Peak Velocity 288.0 cm/s TR Peak Gradient 33.2 mmHg FINDINGS Left Ventricle Normal left ventricular cavity size. Left ventricular ejection fraction is estimated at 55 %. Grade 1 diastolic dysfunction Right Ventricle The right ventricle is normal in size and function. Right Atrium The right atrium is normal in size. Left Atrium The left atrium is normal in size. Mitral Valve Mitral valve sclerosis. Trace mitral valve regurgitation. There is moderate calcification of the posterior mitral annulus in the basal portion of the posterior valve leaflets with mild decreased excursion Aortic Valve Aortic valve sclerosis without stenosis or regurgitation. Tricuspid Valve Morphologically normal tricuspid valve. Mild tricuspid valve regurgitation. There is mild tricuspid regurgitation with a peak velocity of 2.88 m per sec which corresponds a right ventricular systolic pressure of 33 mmHg plus the right atrial pressure Pulmonic Valve Morphologically normal pulmonic valve. Trace pulmonary valve regurgitation. Pericardium Normal pericardium without effusion. Aorta Normal ascending aorta dimension. Huddl[place] Sylvia (Electronically Signed) Final Date: 01 August 2016 18:53
[2016-08-01] MEDS ORDERED: ALBUTEROL/IPRATROPIUM 3 ML NEB RESP TX SCH (19:00)
[2016-08-02] MEDS ORDERED: sitaGLIPtin 100 MG TABLET PO SCH (09:00)
== END 2016-08-01 17:31 | disposition left against medical advice (07) | DRG 871 ==
LOC: EDUNIT# → EDBD → N.ED 10:14 → N.EDINP 13:56 → SUATTDRO 13:56 → N.CC 16:41
PROVIDERS: ADMIT Internal Medicine; ATTEND Family Medicine